=== PATIENT | male | born 1955 | race Caucasian/White ===

== ENCOUNTER 2018-06-15 11:07 | Inpatient (IN) ==
[2018-06-15] MEDS ORDERED: D50W SYRINGE IV PRN (15:15)
[2018-06-15] MEDS ORDERED: ZOFRAN IV PRN (15:16)
[2018-06-15 15:59] LABS: BASO# 0.07 X1000 (0.0-0.2); BASO% 1.1 % (0.0-0.8); EOS# 0.45 X1000 (0.0-0.7); EOS% 6.8 % (0.0-10.0); HEMATOCRIT 36.2 % (42.0-52.0); HEMOGLOBIN 11.9 g/dL (14.0-18.0); LYMPH# 2.07 X1000 (1.2-3.4); LYMPH% 31.2 % (20.5-51.1); MCH 27.7 PG (27-31); MCHC 32.9 g/dL (33-37); MCV 84.2 FL (81-99); MONO# 0.61 X1000 (0.11-0.59); MONO% 9.2 % (1.7-9.3); MPV 9.8 FL (7.4-10.4); NEUT# 3.44 X1000 (1.4-6.5); NEUT% 51.7 % (42.2-75.2); PLT 189 X1000 (130-400); RDW 13.5 % (11.5-14.5); WBC 6.64 X1000 (4.8-10.8)
[2018-06-15 16:23] LABS: AGAP 12; ALB/GLOB RATIO 1.5; ALBUMIN 3.8 g/dL (3.5-5.0); ALKALINE PHOSPHATASE 196 U/L (32-122); BUN 13 mg/dL (8-22); CALCIUM 9.2 mg/dL (8.8-10.2); CHLORIDE 98 mmol/L (98-107); COSMO 287; CREATININE 1.2 mg/dL (0.7-1.2); ESTIMATED GFR > 60; GLUCOSE 339 mg/dL (70-104); GOT 49 U/L (10-34); GPT 80 U/L (10-44); POTASSIUM 4.6 mmol/L (3.5-5.1); SODIUM 137 mmol/L (136-145); TCO2 27 mmol/L (25-35); TOTAL BILIRUBIN 0.21 mg/dL (0.20-1.00); TOTAL PROTEIN 6.4 g/dL (6.3-8.3)
[2018-06-15 16:24] LABS: HEMOGLOBIN A1C 9.3 % (4.8-6.0)
--- NOTE | 2018-06-15 16:49 | Diag Imaging Result Doc PS360 ---
EXAM: CT HEAD W/O CONTRAST INDICATION: Ct of brain (AMS) TECHNIQUE: This exam was performed using automated exposure control, adjustment of mA or kV according to patient size, and/or use of iterative reconstruction technique. COMPARISON: 05/02/2014 FINDINGS: There is very mild patchy low attenuation in the periventricular and subcortical white matter suggesting mild microangiopathy, stable. The ventricles appear subtly larger than the previous study suggesting some degree of interval atrophy. There is no definite acute infarct given the limited sensitivity of CT versus MRI. There is no discrete intracranial mass, mass effect, or intracranial hemorrhage. There is extensive chronic paranasal sinus mucosal disease with subtotal opacification of the right maxillary sinus. IMPRESSION: 1.Suggestion of mild white matter microangiopathy, stable. 2.Subtly larger cerebral ventricles that probably represents interval mild diffuse brain atrophy. 3.Extensive chronic sinusitis. Electronically signed by Junior Lee 06/15/2018 4:47 PM
--- NOTE | 2018-06-15 16:50 | Diag Imaging Result Doc PS360 ---
EXAM: CHEST-2 VIEWS HISTORY: ams TECHNIQUE: Chest two views COMPARISON: 12/10/2017 FINDINGS: The lungs are hyperexpanded. The heart is not enlarged. The vessels are small. There are no infiltrates. No pleural effusions. IMPRESSION: Emphysema Electronically signed by Knerick Serna 06/15/2018 4:48 PM
[2018-06-15] MEDS: GLUCOPHAGE PO SCH (17:22)
[2018-06-15] MEDS: HUMALOG SUBQ SCH ×2 (17:24→21:49)
[2018-06-15 18:16] LABS: URINE SOURCE CLEAN CATCH
[2018-06-15 18:23] LABS: BILIRUBIN URINE NEGATIVE (NEGATIVE); BLOOD URINE NEGATIVE (NEGATIVE); COLOR YELLOW; GLUCOSE URINE >1000 mg/dL (NEGATIVE); KETONE URINE NEGATIVE (NEGATIVE); LEUKOCYTES URINE NEGATIVE (NEGATIVE); NITRITE URINE NEGATIVE (NEGATIVE); PH URINE 6.5; PROTEIN URINE NEGATIVE (NEGATIVE); SP GRAVITY URINE 1.023; TURBIDITY URINE CLEAR (CLEAR); UR EPITHELIAL CELLS <10 /HPF (<10); URINE BACTERIA NEGATIVE /HPF; URINE RBC <10 /HPF (<10); URINE WBC <10 /HPF (<10); UROBILINOGEN URINE NORMAL (NORMAL)
[2018-06-15] MEDS: KLONOPIN PO PRN (21:34)
[2018-06-15] MEDS: ARICEPT PO SCH (21:34)
[2018-06-15] MEDS: NORCO-10 PO PRN (21:39)
--- NOTE | 2018-06-15 21:50 | HISTORY AND PHYSICAL ---
HISTORY OF PRESENT ILLNESS: Mr. Quevedo, who is a 63-year-old white gentleman, known case of diabetes, who has been a heavy smoker, was admitted because of acute mental status change. According to the caretakers, he has been forgetting things and is getting confused. He is calling his friends at 12 midnight and has been getting confused, staying confused, and stumbling with the furniture and falls. According to him, his diabetes is staying out of control also. PAST SURGICAL HISTORY: Reveals history of right carpal tunnel syndrome surgery. 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 SOCIAL HISTORY: He used to be a smoker, however, has not been smoking for the last 80 years. He does not drink. ALLERGIES: He is allergic to beta adrian, cephalexin. REVIEW OF SYSTEMS: He denies having any headaches. However, he has dizziness at times. He has generalized weakness. Mental condition is getting worse. Sometimes, he hardly can stay awake or when he is standing, he can hardly stand and falls down. He has been driving a car by himself. PHYSICAL EXAMINATION: GENERAL: The patient at present is alert and oriented. LUNGS: Clear. HEART: Heart sounds are normal. VITAL SIGNS: Temperature normal,pulse 71 per minute, regular. Respiratory rate 16 per minute, blood pressure 155/73. HEENT: Head normocephalic. Pupils PERRLA. Fundus examination normal. NECK: Supple. JVP normal. ENT examination unremarkable. There is no evidence of lymphadenopathy, thyroid enlargement. EXTREMITIES: No pedal edema, calf tenderness, edema, cyanosis or clubbing. Pedal pulses well felt. BREASTS: Normal. CHEST: Normal inspection. Lungs are clear on auscultation. PMI in the normal position. Heart sounds normal. No murmur, gallop or rub noted. ABDOMEN: Nondistended. Hernial orifices normal. No guarding, rigidity, free fluid, masses, or organomegaly. Bowel sounds normal. RECTAL: Deferred. NEUROLOGIC: Higher functions normal. Cranial nerves normal. Motor and sensory system examination unremarkable. Deep tendon reflexes normal. Plantars downgoing. Spine examination reveals painful movements of the lumbosacral spine. SLR positive bilaterally. No cerebellar signs. No signs of meningeal irritation on locomotor exam. SKIN: Unremarkable. MEDICATIONS: Include [place] 10, clonazepam, metformin. CLINICAL IMPRESSION: Acute mental status change. The patient probably has early dementia. I am going to try to work him up for his mental status change. cc: Cresencio Pace MD MTDD
[2018-06-16] MEDS: HUMALOG SUBQ SCH ×4 (06:15→20:58)
--- NOTE | 2018-06-16 07:56 | EKG Report ---
Test Performed on : 06/15/2018 3:27:38 PM Test Reason : ams Blood Pressure : / mmHG Vent. Rate : 071 BPM Atrial Rate : 071 BPM P-R Int : 192 ms QRS Dur : 090 ms QT Int : 428 ms P-R-T Axes : 072 090 074 degrees QTc Int : 465 ms Normal sinus rhythm. Rightward axis Nonspecific ST abnormality Abnormal ECG When compared with ECG of 29-JUL-2017 10:26, No significant change was found Unconfirmed Result
--- NOTE | 2018-06-16 09:04 | PROGRESS NOTE ---
DATE: 06/16/2018 SUBJECTIVE: Mr. Quevedo was admitted yesterday for altered mental status. He has periods of confusion and forgetfulness. He is feeling weak. Diabetes is somewhat uncontrolled. CT scan shows some dilatation of the cerebral ventricles, partly because of the cerebral atrophy. Overall condition is unchanged. Continue with the current management. We are going to do carotid flow studies on him. Electrolyte status is stable. Blood sugar is slowly coming. -2 cc: Cresencio Pace MD
[2018-06-16] MEDS: GLUCOPHAGE PO SCH ×2 (10:13→18:37)
[2018-06-16] MEDS: KLONOPIN PO PRN ×2 (10:13→18:41)
[2018-06-16] MEDS: NORCO-10 PO PRN ×2 (10:14→18:41)
[2018-06-16] MEDS ORDERED: PNEUMOVAX 23 IM ONE (15:42)
[2018-06-16] MEDS: ARICEPT PO SCH (20:58)
[2018-06-17] MEDS: HUMALOG SUBQ SCH ×5 (06:26→22:51)
[2018-06-17] MEDS: GLUCOPHAGE PO SCH ×2 (08:22→16:15)
[2018-06-17] MEDS: KLONOPIN PO PRN ×2 (08:23→14:56)
[2018-06-17] MEDS: NORCO-10 PO PRN ×2 (08:23→14:56)
[2018-06-17] MEDS: JANUVIA PO SCH (08:32)
--- NOTE | 2018-06-17 08:37 | EEG REPORT ---
DATE: 06/15/2018 REFERRING PHYSICIAN: Cresencio Pace MD AIRPORT CLERK: Ezra Zhu. BACKGROUND INFORMATION/TECHNIQUE: This is a digitally recorded routine EEG with video. HISTORY: A 63-year-old male patient, admitted with mental status changes. EEG is ordered to detect evidence of seizures. Medications include Fay, clonazepam, divalproex, promethazine. EEG FINDINGS: A moderately well-formed 9 Hz posterior dominant alpha rhythm is seen symmetrically in the occipital regions and attenuates with eye opening. The anterior background consists of mixed alpha and beta-range frequencies. No focal slowing. No epileptiform discharges. No seizures. Hyperventilation was not performed. Photic stimulation induces a normal driving response. The patient becomes drowsy but stage II sleep is not seen. EKG demonstrates regular R-R intervals. IMPRESSION: Normal routine EEG in the awake and drowsy state. Of note, a normal EEG does not rule out epilepsy. Clinical correlation is recommended. cc: MD Cresencio Rahman MD [facility]
--- NOTE | 2018-06-17 09:31 | PROGRESS NOTE ---
DATE: 06/17/2018 Mr. Quevedo is doing better. His blood sugar is still unstable. We will put him on Seroquel 400 mg at bedtime and put him on breathing treatments. I have started the Januvia on him as the diabetes is out of control. -2 cc: Cresencio Pace MD
[2018-06-17] MEDS: DUONEB (A & A) INH SCH ×2 (15:44→21:18)
[2018-06-17] MEDS: ARICEPT PO SCH (20:39)
[2018-06-17] MEDS ORDERED: SEROQUEL PO SCH ×2 (21:00)
[2018-06-18] MEDS: HUMALOG SUBQ SCH ×2 (06:07→10:48)
[2018-06-18] MEDS: DUONEB (A & A) INH SCH (08:21)
[2018-06-18] MEDS: GLUCOPHAGE PO SCH (08:26)
[2018-06-18] MEDS: JANUVIA PO SCH (08:26)
[2018-06-18] MEDS: NORCO-10 PO PRN (08:31)
--- NOTE | 2018-06-18 09:48 | PROGRESS NOTE ---
DATE: 06/18/2018 SUBJECTIVE: Mr. Quevedo is better. Blood sugars are getting better. His EEG is unremarkable. His neurological status has improved. We will discharge him today. -8 cc: Cresencio Pace MD
--- NOTE | 2018-06-18 10:06 | DISCHARGE SUMMARY ---
ADMISSION DATE: 06/15/2018 DISCHARGE DATE: 06/18/2018 HISTORY: Mr. Quevedo who is a 63-year-old white gentleman was admitted with altered mental status. Laboratory Data in the hospital, chest x-ray revealed presence of emphysema. Otherwise, it was unremarkable. CT scan of the brain revealed that he had suggestion of mild white matter microangiopathy, large cerebral ventricles probably because of mild diffuse brain atrophy and extensive chronic sinusitis. He had a normal EEG. The lab data, CBC revealed mild anemia, hemoglobin 11.9, hematocrit 36.2, and MCHC was 32.9. Electrolytes were normal. Blood sugar was unstable however, it has started coming down since we started sitagliptin. BUN was 13 and creatinine 1.2. Urinalysis was negative. COURSE IN THE HOSPITAL: Mr. Quevedo was initially kept on sliding scale. He voiced his neurological status continued to improve. He does not have dementia. However, he had altered mental status change, the exact reason is not known. Carotid flow studies are not back. Overall condition is improving, and we will discharge him. FINAL DIAGNOSES: 1. Acute mental status change. 2. Cerebral arteriosclerosis. 3. Enlargement of the cerebral ventricles. 4. Uncontrolled diabetes. DISCHARGE INSTRUCTIONS: I will give him prescriptions of [place] 10 t.i.d. p.r.n. 90, Klonopin 0.5 t.i.d. p.r.n. 90, and sitagliptin 100 mg daily 30 and 3 refills. No refill on the other two. cc: Cresencio Pace MD
[2018-06-18 11:08] VITALS: BP 141/53
[2018-06-18] MEDS ORDERED: FLU VACCINE IM ONE (12:02)
--- NOTE | 2018-06-19 14:10 | Carotid Study ---
DATE: 06/15/2018 PROCEDURE: Bilateral carotid ultrasound study. REQUESTING PHYSICIAN: Cresencio Pace MD. INTERPRETING PHYSICIAN: Shakir Fernandes MD. TECH: [place]. INDICATIONS: Memory loss. EQUIPMENT: [employer] E9 ultrasound system with a 9LD transducer. OBSERVED DATA RIGHT LEFT Brachial Blood Pressure Carotid Pulse Bruits: Carotid/Sub DIAGRAM OF ULTRASOUND IMAGING R L RIGHT INT EXT INT EXT LEFT Last (cm/s) Last (cm/s) Subclavian 150/0 Subclavian 199/1 CCA Proximal 104/13 CCA Proximal 104/12 CCA Distal 79/6 CCA Distal 94/18 Bulb 105/11 Bulb 98/14 ICA Proximal 131/24 ICA Proximal 1. 158/46 2. 160/46 ICA Mid 124/23 ICA Mid 114/32 ICA Distal 97/17 ICA Distal 114/29 ECA 174/5 ECA 118/10 Vertebral 54/11 A Vertebral 80/20 A ICA/CCA Ratio 1.26 ICA/CCA Ratio 1.54 % Stenosis 40-59% % Stenosis 60-79% FINDINGS: There is atherosclerosis noted of bilateral carotid arteries that produces a moderate stenosis on the right and a severe stenosis on the left. Both vertebral arteries are antegrade flow. PHYSICIAN INTERPRETATION: Moderate stenosis of 40-59% on the right with a severe stenosis of 60- 79% on the left. cc: MD Cresencio Jackson MD
== END 2018-06-18 12:27 | disposition home or self-care (01) | DRG 948 ==
LOC: DIRADM 11:07 → 3N 14:41
PROVIDERS: ADMIT Internal Medicine; ATTEND Internal Medicine
CPT/HCPCS: 70450; 71020; 71046; 80053; 81001; 82948; 83036; 85025; 90686; 90732; 93005; 93010; 93880; 94640; 94761; 95816; A9270; J1815; J2405; XXXXX